=== PATIENT | female | born 1975 | race Hispanic/Latino ===

== ENCOUNTER 2023-07-21 11:14 | Day surgery (SDC) | payer MEDICAID ==
[2023-07-20 13:52] VITALS: BP 112/75; PULSE 70; RESP 16
[2023-07-21] VITALS (9 sets, daily range): BP systolic 93–146; BP diastolic 45–78; PULSE 72–82; RESP 14–18
[~2023-07-21] VITALS: Ht 149.9 cm; Wt 108.0 kg
[~2023-07-21 11:14] MED LIST: AMLO-258 PO; BENZ1TAB83 PO; CALC1TAB2 PO; CARI4.5C PO; CLOT15CR5 TP; CRAN450T10 PO; FLUC100T12 PO; FOLIC ACID PO; HYDR25TA PO; INSLAN SQ; INSU100C14 SQ; LAMO100T16 PO; LEVE1000 PO; OXCA300T28 PO; TOPI200T PO
[2023-07-21] MEDS ORDERED: PROPOFOL 10 MG/ML 20ML VIAL IV ONE (12:59)
== END 2023-07-21 14:35 | disposition home or self-care (01) ==
LOC: DAH 11:14 → ENDO 11:14
PROVIDERS: ATTEND Internal Medicine Gastroenterology
DX: Z12.11 Encounter for screening for malignant neoplasm of colon (principal); K29.50 Unspecified chronic gastritis without bleeding; R13.10 Dysphagia, unspecified; I10 Essential (primary) hypertension; R56.9 Unspecified convulsions; H54.8 Legal blindness, as defined in USA; E11.9 Type 2 diabetes mellitus without complications; F84.0 Autistic disorder; Z79.4 Long term (current) use of insulin; Z79.899 Other long term (current) drug therapy
CPT/HCPCS: 81025; 82948; 43239; 45378; J3490; A4620; A4215 ×2; A4223; A7002; A4222; A4221; A4663; A4216; J7030; A4606; J2704